=== PATIENT | male | born 1990 | race American Indian/Alaskan Native ===

== ENCOUNTER 2018-10-09 16:34 | Emergency (ER) | payer OTHER ==
--- NOTE | 2018-10-09 17:13 | Emergency Department Report ---
Blank Doc - Documentation Documentation: This is a 28-year-old male that presents with left knee pain. This initial assessment/diagnostic orders/clinical plan/treatment(s) is/are subject to change based on patient's health status, clinical progression and re- assessment by fellow clinical providers in the ED. Further treatment and workup at subsequent clinical providers discretion. Patient/guardians urged not to elope from the ED as their condition may be serious if not clinically assessed and managed. Initial orders include: 1- Patient sent to [facility] for further evaluation and treatment 2- xray
[2018-10-09 17:14] VITALS: BP 118/80
--- NOTE | 2018-10-09 17:54 | XRay Report ---
PROCEDURE: XR KNEE 3V LT TECHNIQUE: 3 views of the left knee. HISTORY: knee pain COMPARISONS: No priors FINDINGS: No evidence of acute fracture or dislocation. Small suprapatellar effusion. Alignment is anatomic. IMPRESSION: Small suprapatellar effusion.. This document is electronically signed by Tio Mehta MD., October 09 2018 05:52:47 PM ET
--- NOTE | 2018-10-09 21:05 | Emergency Department Report ---
ED Lower Extremity HPI - General Chief Complaint: Extremity Injury, Lower Stated Complaint: LT KNEE PAIN Time Seen by Provider: 10/09/18 17:12 Source: patient Mode of arrival: Ambulatory Limitations: No Limitations - History of Present Illness Initial Comments: 28-year-old -[place] male with a past medical history of bilateral tendinitis. These presents to the emergency department complaining of knee pain off and on for about one month. She reports no known injury. However, his job requires a lot of bending, squatting and standing which may have exacerbated this flareup. No swelling noted. Pain with ambulation. . No direct trauma.. MD Complaint: knee injury Injury: Knee: Left Severity: mild Improves With: nothing Worsens With: nothing Associated Symptoms: able to partially bear weight, ambulatory. denies: numbness, tingling - Related Data Previous Rx's Medication Instructions Recorded Last Taken Type Ketorolac [Toradol] 10 mg PO Q6H PRN #20 tablet 10/09/18 Unknown Rx Leg Brace [Knee Brace] 1 each MC DAILY #1 each 10/09/18 Unknown Rx ED Review of Systems ROS: Stated complaint: LT KNEE PAIN Other details as noted in HPI Constitutional: denies: chills, fever Eyes: denies: eye pain, eye discharge, vision change ENT: denies: ear pain, throat pain Respiratory: denies: cough, shortness of breath, wheezing Cardiovascular: denies: chest pain, palpitations Endocrine: no symptoms reported Gastrointestinal: denies: abdominal pain, nausea, diarrhea Genitourinary: denies: urgency, dysuria Musculoskeletal: arthralgia. denies: back pain, joint swelling, myalgia Skin: denies: rash, lesions Neurological: denies: headache, weakness, paresthesias Psychiatric: denies: anxiety, depression Hematological/Lymphatic: denies: easy bleeding, easy bruising ED Past Medical Hx - Past Medical History Previous Medical History?: No - Surgical History Additional Surgical History: patellar surgery - Social History Smoking Status: Current Every Day Smoker Substance Use Type: Alcohol - Medications Home Medications: Home Medications Medication Instructions Recorded Confirmed Last Taken Type Ketorolac [Toradol] 10 mg PO Q6H PRN #20 tablet 10/09/18 Unknown Rx Leg Brace [Knee Brace] 1 each MC DAILY #1 each 10/09/18 Unknown Rx ED Physical Exam - General Limitations: No Limitations General appearance: alert, in no apparent distress - Head Head exam: Present: atraumatic, normocephalic, normal inspection - Eye Eye exam: Present: normal appearance, PERRL, EOMI. Absent: scleral icterus, conjunctival injection, periorbital swelling Pupils: Present: normal accommodation - ENT ENT exam: Present: normal exam, mucous membranes moist, TM's normal bilaterally - Neck Neck exam: Present: normal inspection - Respiratory Respiratory exam: Present: normal lung sounds bilaterally. Absent: respiratory distress - Cardiovascular Cardiovascular Exam: Present: regular rate, normal rhythm. Absent: systolic murmur, diastolic murmur, rubs, gallop - GI/Abdominal GI/Abdominal exam: Present: soft, normal bowel sounds - Rectal Rectal exam: Present: deferred - Extremities Exam Extremities exam: Present: normal inspection, normal capillary refill, other (palpation to the tibial tuberosity region and the patella tendon. Also tenderness to the lower medial aspect of the knee. Normal varus and valgus pain with Greg's test as well. Full range of motion is noted.) - Back Exam Back exam: Present: normal inspection - Neurological Exam Neurological exam: Present: alert, oriented X3 - Psychiatric Psychiatric exam: Present: normal affect, normal mood - Skin Skin exam: Present: warm, dry, intact, normal color. Absent: rash ED Course Vital Signs 10/09/18 17:12 Temperature 98.1 F Pulse Rate 68 Respiratory 14 Rate Blood Pressure 118/80 [Left] O2 Sat by Pulse 100 Oximetry ED Lower Extremity MDM - Medical Decision Making 28-year-old [place] male with left knee pain medially located, but able to tolerate weightbearing. Patellar tendon is intact. Full range of motion. Some pain with stressing of the medial meniscus. The plan is to advise him to utilize a stabilizing knee brace. Follow with also for reevaluation. Advised ice and NSAIDs. Knee is stable Critical care attestation.: If time is entered above; I have spent that time in minutes in the direct care of this critically ill patient, excluding procedure time. ED Disposition Clinical Impression: Knee pain Disposition: DC- TO HOME OR SELFCARE Is pt being admited?: No Does the pt Need Aspirin: No Condition: Stable Instructions: Arthralgia (ED) Prescriptions: Ketorolac [Toradol] 10 mg PO Q6H PRN #20 tablet PRN Reason: Pain Referrals: YURI BEDOYA MD [Primary Care Provider] - 3-5 Days
== END 2018-10-09 21:15 | disposition home or self-care (01) ==
LOC: ED 16:34
DX: M25.562 Pain in left knee (principal); F17.200 Nicotine dependence, unspecified, uncomplicated
CPT/HCPCS: 99283